=== PATIENT | male | born 2005 | race Caucasian/White ===

== ENCOUNTER 2024-12-11 19:54 | Observation (INO) ==
--- NOTE | 2024-12-11 20:24 | Emergency Department Note ---
ED Provider Note History of Present Illness Chief Complaint: Rib Injury/Pain Stated Complaint: PAIN UNDER RIBS THAT SHOOTS BACK INTO SHOULDER Time Seen by Provider: 12/11/24 20:10 19-year-old male who presents to the emergency department for evaluation of pain under his left lower rib region, radiating to his left shoulder. The patient reports that he has had discomfort in the shoulder for the past week. The patient reports that he has been losing weight and working out 6 days a week in the gym. He did notice some pain in the shoulder with moving it recently. The patient reports that he started to develop left lower rib pain on Wednesday that he thought was due to indigestion. He took a Dulcolax without improvement. The patient reports that at that time, he did notice some pain radiating to the right side of the abdomen, but that has since resolved. He denies any change in stool color, pattern or consistency. He also denies any urinary symptoms. The patient denies any personal or strong family history of heart or lung disease. The patient currently rates his discomfort a 3 out of 10. Home Medications Medication Instructions Recorded Confirmed Type No Known Home Medications 12/11/24 12/11/24 History Allergies Allergy/AdvReac Type Severity Reaction Status Date / Time amoxicillin [From Augmentin] AdvReac Nausea Verified 12/11/24 23:05 clavulanic acid AdvReac Nausea Verified 12/11/24 23:05 [From Augmentin] Past Med/Surg History Problem List (Updated 12/11/24 @ 23:17 by Tulio Mchugh) Acute pain of left shoulder (Acute) Pneumoperitoneum (Acute) Medical History No significant past medical history Surgical History No significant past surgical history Social History Smoking Status: Never smoker Preferred Language: Serbian current occupational status: student Feels Safe at Home: Yes Physical Exam Vital Signs Vital Signs - 24 hr 12/11/24 20:06 12/11/24 20:19 12/11/24 20:27 Temperature 36.6 C Temperature Source Temporal Artery Scan Pulse Rate 87 54 L Pulse Rhythm Regular Pulse Strength Normal Respiratory Rate 18 Respiratory Effort / Characteristics Non-Labored Spontaneous Respiratory Depth Normal Respiratory Pattern Regular Blood Pressure 130/85 Blood Pressure Mean 100 Blood Pressure Position Sitting Pulse Oximetry 100 100 Oxygen Delivery Method Room Air Room Air Sepsis Recent Fever Within 48 Hours No Sepsis New/Unexplained Change in Mental Status N/A Sepsis Action Taken by Nursing No Action Required 12/11/24 21:51 Temperature Temperature Source Pulse Rate 55 L Pulse Rhythm Pulse Strength Respiratory Rate 14 Respiratory Effort / Characteristics Respiratory Depth Respiratory Pattern Blood Pressure 91/67 L Blood Pressure Mean 75 Blood Pressure Position Pulse Oximetry 100 Oxygen Delivery Method Room Air Sepsis Recent Fever Within 48 Hours Sepsis New/Unexplained Change in Mental Status Sepsis Action Taken by Nursing CONSTITUTIONAL: Healthy and well nourished. Alert and oriented X 3. Patient does not appear in any acute distress. HEENT: No scleral icterus or conjunctival injection. Mucous membranes are moist. NECK: Full active range of motion without discomfort, or reproducible pain in the left shoulder region with cervical range of motion. RESPIRATORY: Clear to auscultation bilaterally with no wheezing, crackles, rhonchi or stridor. CARDIOVASCULAR: Regular rate and rhythm with no murmurs, rubs or gallops. GASTROINTESTINAL: Bowel sounds present in all quadrants. No abdominal tenderness to palpation. MUSCULOSKELETAL: Full range of motion of all joints without discomfort. INTEGUMENTARY: No rash or other significant dermatologic conditions noted. HEMATOLOGIC: No ecchymosis or petechiae. PSYCHIATRIC: Positive affect. NEUROLOGIC: No focal neurologic deficits noted. Course Course Patient history and physical exam were performed. Nursing notes were reviewed. Vital signs were reviewed and were normal. IV access was established, labs were ordered and drawn. An ECG was performed, showing a sinus bradycardic rhythm. The patient was placed on quality compliance manager while in the emergency department. Two-view chest x-ray did not show evidence for pneumonia, pneumothorax or cardiomegaly. A KUB x-ray shows significant air within the abdomen, as well as possibility of subdiaphragmatic air. Review of labs shows a mild leukopenia. Coag studies were normal, with an elevated D-dimer of 1310. CMP was otherwise unremarkable, as well as lipase and troponin. At this point, I did discuss the case further with Dr. Vredugo, ED attending physician, who recommended CT angiography of the chest, as well as CT imaging of the abdomen and pelvis. The studies were performed, showing intraperitoneal free air and small to moderate amount of ascites, concerning for viscus perforation. Fluid and gas-filled small bowel loops were also suggested to represent an enteritis or ileus in the appropriate clinical setting. Findings were discussed with the patient. The patient still had a benign abdomen on examination. At this point, the patient was administered IV Zosyn, and the case was further discussed with the [facility] hospitalist service. I also discussed the case further with Dr. Grijalva, general surgeon on-call. Based on surgical evaluation, he felt that the patient could be admitted with overnight observation. Please see hospitalist and general surgery dictations for further treatment and final disposition. Administered Medications Sodium Chloride (Nss) 1,000 mls @ 999 mls/hr IV .Q1H1M ONE Stop: 12/11/24 23:29 Last Admin: 12/11/24 22:47 Dose: 999 mls/hr Documented By: JOHN Discontinued Medications Piperacillin Sod/Tazobactam Sod (Zosyn) 4.5 gm in 100 mls @ 200 mls/hr IV NOW ONE; Protocol Stop: 12/11/24 22:39 Last Admin: 12/11/24 22:47 Dose: 200 mls/hr Documented By: JOHN Ioversol (Optiray 320 125ml) 115 ml IV ONCE ONE Stop: 12/11/24 21:44 Last Admin: 12/11/24 21:44 Dose: 115 ml Documented By: SHARAD Medical Decision Making Medical Records Attestation: I reviewed the patient's medical records. Home Medications was personally reviewed by me Laboratory Data Attestation: I reviewed the patient's lab results. 12/11/24 20:10 12/11/24 20:10 Lab Results 12/11/24 Range/Units 20:10 WBC 4.75 L (4.8-10.8) K/ul RBC 4.37 L (4.70-6.10) M/uL Hgb 13.5 L (14.0-18.0) g/dl Hct 39.8 L (42.0-52.0) % MCV 91.1 (80.0-100.0) fL MCH 30.9 (25.0-34.0) pg MCHC 33.9 (32.0-36.0) g/dL RDW Std Deviation 41.6 (36.4-46.3) fL RDW Coeff of Prashanth 12.5 (11.5-14.5) % Plt Count 221 (130-400) K/uL MPV 11.5 (9.4-12.4) fL Immature Gran % (Auto) 0.0 % Neut % (Auto) 53.5 % Lymph % (Auto) 36.6 % [place] % (Auto) 5.5 % Eos % (Auto) 3.8 % Baso % (Auto) 0.6 % Neut # (Auto) 2.54 (1.40-6.50) K/uL Lymph # (Auto) 1.74 (1.20-3.40) K/uL [place] # (Auto) 0.26 (0.11-0.59) K/uL Eos # (Auto) 0.18 (0.00-0.50) K/uL Baso # (Auto) 0.03 (0.00-0.20) K/uL Immature Gran # (Auto) 0.00 L (0.01-0.20) K/uL PT 11.9 (9.0-12.0) Seconds INR 1.1 (0.9-1.1) APTT 28 (21-31) Seconds PTT Ratio 1.0 D-Dimer 1310 H* (0-500) ug/L FEU Sodium 139 (136-145) mmol/L Potassium 3.8 (3.5-5.1) mmol/L Chloride 104 (98-107) mmol/L Carbon Dioxide 29 (21-32) mmol/L Anion Gap 6 (3-11) BUN 28 H (6-23) mg/dl Creatinine 1.17 (0.6-1.4) mg/dl Est Cr Clr Drug Dosing 99.9 ml/min eGFR 90.96 BUN/Creatinine Ratio 23.9 H (10-20) Glucose 90 (70-99(Fasting)) mg/dl Calcium 9.4 (8.6-10.3) mg/dl Total Bilirubin 0.7 (0.2-1.0) mg/dl AST 34 (13-39) U/L ALT 34 (7-52) U/L Alkaline Phosphatase 46 (34-104) U/L Troponin I High Sens < 2.3 (0-20) pg/ml Total Protein 7.4 (6.0-8.3) gm/dl Albumin 4.6 (3.4-5.0) gm/dl Globulin 2.8 (2.5-4.0) gm/dl Albumin/Globulin Ratio 1.6 (0.9-2) Lipase 45 (11-82) U/L Imaging Data Attestation: I personally reviewed and interpreted this imaging study as follows: My Impression: My interpretation of a two-view chest x-ray does not show evidence for pneumothorax, pneumonia or cardiomegaly. My interpretation of the KUB x-ray shows notable area with possibility of subdiaphragmatic air. My interpretation of CT angiography of the chest does not show evidence for any pulmonary emboli, pericarditis or pneumonia. My interpretation of CT with IV contrast of the abdomen and pelvis shows free air and fluid without any obvious bowel obstruction. Radiologist reports were also reviewed with concurrence. Radiologist's Impression: Chest X-Ray 12/11/24 20:19 Exam(s): XR CXR 2 VIEWS EXAM: XR Chest, 2 Views CLINICAL HISTORY: Reason for exam: L lower C/P, scapula pain. TECHNIQUE: Frontal and lateral views of the chest. COMPARISON: No relevant prior studies available. FINDINGS: Lungs: Unremarkable. No consolidation. Pleural space: Unremarkable. No pneumothorax. Heart: Unremarkable. No cardiomegaly. Mediastinum: Unremarkable. Normal mediastinal contour. Bones/joints: Unremarkable. No acute fracture. Upper abdomen: Right subdiaphragmatic lucency which could be due to free air. Moderate air distention of the colon seen. IMPRESSION: 1. No acute pulmonary process identified 2. Suspected free air in the upper abdomen. Decubitus film of the abdomen is suggested for further assessed on Electronically signed by: Austin Preciado MD 12/11/24 22:56 PM KUB X-Ray 12/11/24 20:19 Exam(s): XR KUB EXAM: XR Abdomen, 2 Views CLINICAL HISTORY: Reason for exam: L upper abd/chest pain. TECHNIQUE: Frontal view of the abdomen/pelvis with upright view of the abdomen. COMPARISON: No relevant prior studies available. FINDINGS: Intraperitoneal space: Suspected free air seen under the left dome of the diaphragm. Gastrointestinal tract: There is air distended loops of bowel loops in the abdomen. Bones/joints: Unremarkable. No acute fracture. IMPRESSION: 1. Suspected free air under the left dome of the diaphragm 2. Paralytic ileus Electronically signed by: Austin Preciado MD 12/11/24 22:58 PM Abdomen/Pelvis CT 12/11/24 21:29 CR Exam(s): CT ABDOMEN + PELVIS With Contrast IV Amt: 115 ml optiray 320 EXAM: CT Abdomen and Pelvis With Intravenous Contrast CLINICAL HISTORY: Reason for exam: RUQ abd pain. TECHNIQUE: Axial computed tomography images of the abdomen and pelvis with intravenous contrast. CTDI is 12.72 mGy and DLP is 1380.91 mGy-cm. Automated exposure control was utilized for the study. A dose lowering technique was utilized adhering to the principles of ALARA. CONTRAST: Patient received 115 ml optiray 320 of IV contrast COMPARISON: None FINDINGS: Lung bases: Unremarkable. No mass. No consolidation. ABDOMEN: Liver: Unremarkable. No mass. Gallbladder and bile ducts: Unremarkable. No calcified stones. No ductal dilation. Pancreas: Unremarkable. No mass. No ductal dilation. Spleen: Unremarkable. No splenomegaly. Adrenals: Unremarkable. No mass. Kidneys and ureters: Unremarkable. No hydronephrosis or obstructing ureteral stone. Stomach and bowel: Fluid and gas filled small bowel loops may represent enteritis or ileus in the appropriate clinical setting. No obstruction. PELVIS: Appendix: Normal appendix. Bladder: Unremarkable. No mass. Reproductive: Unremarkable as visualized. ABDOMEN and PELVIS: Intraperitoneal space: Intraperitoneal free air and [id number] amount of ascites , concerning for viscus perforation. Bones/joints: No acute fracture. No dislocation. Soft tissues: Unremarkable. Vasculature: Unremarkable. No abdominal aortic aneurysm. Lymph nodes: Unremarkable. No enlarged lymph nodes. IMPRESSION: 1. Intraperitoneal free air and okwsp-ny-najomsci amount of ascites , concerning for viscus perforation. 2. Fluid and gas filled small bowel loops may represent enteritis or ileus in the appropriate clinical setting. Communications: 12/11/24 22:03 Call Doctor Regarding Pneumoperitoneum, new or unexpected, called Dr. Mchugh on 12/11 22:03 (-04:00) Electronically signed by: Zen Hernandez M.D. 12/11/24 22:04 PM Chest CTA 12/11/24 21:29 Exam(s): CTA CHEST IV Amt: 115 ml optiray 320 EXAM: CT Angiography Chest With Intravenous Contrast CLINICAL HISTORY: Reason for exam: PE study. TECHNIQUE: Axial computed tomographic angiography images of the chest with intravenous contrast. CTDI is 12.72 mGy and DLP is 1380.91 mGy-cm. Automated exposure control was utilized for the study. A dose lowering technique was utilized adhering to the principles of ALARA. MIP reconstructed images were created and reviewed. COMPARISON: None FINDINGS: Pulmonary arteries: Unremarkable. No pulmonary embolus identified. Aorta: No acute findings. No aortic aneurysm or dissection. Lungs: Unremarkable. No mass. No consolidation. Pleural space: Unremarkable. No significant effusion. No pneumothorax. Heart: Unremarkable. No cardiomegaly. No significant pericardial effusion. No evidence of RV dysfunction. Bones/joints: No acute fracture. No dislocation. Soft tissues: Mild bilateral gynecomastia. Lymph nodes: Unremarkable. No enlarged lymph nodes. Other findings: Please see accompanying CT abdomen/pelvis for further details. IMPRESSION: 1. No pulmonary embolus identified. 2. No aortic aneurysm or dissection. Electronically signed by: Zen Hernandez M.D. 12/11/24 21:58 PM ECG Data Indication: + chest pain Comparison ECG Date: no prior available MDM Narrative Cardiac monitoring: An order was placed for continuous cardiac monitoring. The monitor shows a rate of 50 bpm with a sinus bradycardic rhythm. drug clerk history was reviewed throughout the evaluation, and no dysrhythmias were noted. See ED Course section for further details of today's visit with the patient presents with complaint of mild upper abdominal discomfort radiating to the left shoulder, with symptoms starting 3 days ago. On examination today, the patient does not have any abdominal tenderness to palpation. Laboratory studies were also nonconcerning. Imaging, including an initial KUB and chest x-ray, showed possible subdiaphragmatic free air, which prompted further CT angiography of the chest that did not show evidence for any pneumothorax, pneumonia, pericarditis or other acute intrathoracic findings. CT of the abdomen and pelvis, however, was concerning for pneumoperitoneum and mild ascites. Radiologist was concerned for possible viscus perforation. Patient was administered IV Zosyn antibiotics. The case was discussed with the patient, [facility] attending physician[facility] who recommended admission for further observation overnight. It is noted that the patient does not have any concerning clinical exam findings. Impression Pneumoperitoneum, Acute pain of left shoulder Discharge Plan Visit Data Chief Complaint: Rib Injury/Pain Stated Complaint: PAIN UNDER RIBS THAT SHOOTS BACK INTO SHOULDER ED Provider: Ashok Verdugo ED Midlevel Provider: Tulio Mchugh Discharge Problem: Pneumoperitoneum, Acute pain of left shoulder Patient Disposition: Admitted As Inpatient Condition: Good Forms Stand Alone Forms: [employer] Prescriptions Prescriptions: No Action No Known Home Medications Referrals Referrals: PCP,NO [Primary Care Provider] - ED DC CONDITION Conditon at Discharge Condition at Discharge: Fair
[2024-12-11 20:31] LABS: Hematocrit (blood only) 39.8 % (42.0-52.0); Hemoglobin 13.5 g/dl (14.0-18.0); Immature Granulocytes # (auto) 0.00 K/uL (0.01-0.20); Immature Granulocytes % (auto) 0.0 %; Mean Corpuscular Hemoglobin 30.9 pg (25.0-34.0); Mean Corpuscular Volume 91.1 fL (80.0-100.0); Platelet Count 221 K/uL (130-400); RDW Standard Deviation 41.6 fL (36.4-46.3); Red Blood Count 4.37 M/uL (4.70-6.10); White Blood Count 4.75 K/ul (4.8-10.8)
[2024-12-11 20:48] LABS: Alanine Aminotransferase 34 U/L (7-52); Albumin Globulin Ratio 1.6 (0.9-2); Alkaline Phosphatase 46 U/L (34-104); Anion Gap 6 (3-11); Bilirubin,Total 0.7 mg/dl (0.2-1.0); Blood Urea Nitrogen 28 mg/dl (6-23); Calcium 9.4 mg/dl (8.6-10.3); Carbon Dioxide 29 mmol/L (21-32); Chloride 104 mmol/L (98-107); Creatinine Clr Calc Pharmacy 99.9 ml/min; Globulin 2.8 gm/dl (2.5-4.0); Glucose 90 mg/dl (70-99(Fasting)); Lipase 45 U/L (11-82); Potassium 3.8 mmol/L (3.5-5.1); Sodium 139 mmol/L (136-145); Total Protein 7.4 gm/dl (6.0-8.3)
[2024-12-11 21:07] LABS: INR 1.1 (0.9-1.1); Partial Thromboplastin Time 28 Seconds (21-31); Prothrombin Time 11.9 Seconds (9.0-12.0)
[2024-12-11] MEDS: OPTIRAY 320 125ml IV ONE (21:44)
--- NOTE | 2024-12-11 21:59 | CT Scan Report ---
Exam(s): CTA CHEST IV Amt: 115 ml optiray 320 EXAM: CT Angiography Chest With Intravenous Contrast CLINICAL HISTORY: Reason for exam: PE study. TECHNIQUE: Axial computed tomographic angiography images of the chest with intravenous contrast. CTDI is 12.72 mGy and DLP is 1380.91 mGy-cm. Automated exposure control was utilized for the study. A dose lowering technique was utilized adhering to the principles of ALARA. MIP reconstructed images were created and reviewed. COMPARISON: None FINDINGS: Pulmonary arteries: Unremarkable. No pulmonary embolus identified. Aorta: No acute findings. No aortic aneurysm or dissection. Lungs: Unremarkable. No mass. No consolidation. Pleural space: Unremarkable. No significant effusion. No pneumothorax. Heart: Unremarkable. No cardiomegaly. No significant pericardial effusion. No evidence of RV dysfunction. Bones/joints: No acute fracture. No dislocation. Soft tissues: Mild bilateral gynecomastia. Lymph nodes: Unremarkable. No enlarged lymph nodes. Other findings: Please see accompanying CT abdomen/pelvis for further details. IMPRESSION: 1. No pulmonary embolus identified. 2. No aortic aneurysm or dissection. Electronically signed by: Zen Hernandez M.D. 12/11/24 21:58 PM
--- NOTE | 2024-12-11 22:05 | CT Scan Report ---
Exam(s): CT ABDOMEN + PELVIS With Contrast IV Amt: 115 ml optiray 320 EXAM: CT Abdomen and Pelvis With Intravenous Contrast CLINICAL HISTORY: Reason for exam: RUQ abd pain. TECHNIQUE: Axial computed tomography images of the abdomen and pelvis with intravenous contrast. CTDI is 12.72 mGy and DLP is 1380.91 mGy-cm. Automated exposure control was utilized for the study. A dose lowering technique was utilized adhering to the principles of ALARA. CONTRAST: Patient received 115 ml optiray 320 of IV contrast COMPARISON: None FINDINGS: Lung bases: Unremarkable. No mass. No consolidation. ABDOMEN: Liver: Unremarkable. No mass. Gallbladder and bile ducts: Unremarkable. No calcified stones. No ductal dilation. Pancreas: Unremarkable. No mass. No ductal dilation. Spleen: Unremarkable. No splenomegaly. Adrenals: Unremarkable. No mass. Kidneys and ureters: Unremarkable. No hydronephrosis or obstructing ureteral stone. Stomach and bowel: Fluid and gas filled small bowel loops may represent enteritis or ileus in the appropriate clinical setting. No obstruction. PELVIS: Appendix: Normal appendix. Bladder: Unremarkable. No mass. Reproductive: Unremarkable as visualized. ABDOMEN and PELVIS: Intraperitoneal space: Intraperitoneal free air and [id number]-[id number] amount of ascites , concerning for viscus perforation. Bones/joints: No acute fracture. No dislocation. Soft tissues: Unremarkable. Vasculature: Unremarkable. No abdominal aortic aneurysm. Lymph nodes: Unremarkable. No enlarged lymph nodes. IMPRESSION: 1. Intraperitoneal free air and [id number]-lkyhkmjn amount of ascites , concerning for viscus perforation. 2. Fluid and gas filled small bowel loops may represent enteritis or ileus in the appropriate clinical setting. Communications: 12/11/24 22:03 Call Doctor Regarding Pneumoperitoneum, new or unexpected, called Dr. Mchugh on 12/11 22:03 (-04:00) Electronically signed by: Zen Hernandez M.D. 12/11/24 22:04 PM
[2024-12-11] MEDS: PIPERACILLIN/TAZOBACTAM 4.5 GM/100 ML BAG IV ONE (22:47)
[2024-12-11] MEDS: SODIUM CHLORIDE 0.9% 1,000 ML IV ONE (22:47)
--- NOTE | 2024-12-11 22:54 | History & Physical Report ---
Date of Service December 11, 2024 Assessment & Plan (1) Pneumoperitoneum: (2) Perforated viscus: (3) Ascites: (4) Acute pain of left shoulder: Plan The patient is a 19-year-old male with no significant past medical history, who presents to the emergency department for evaluation of left shoulder pain. He initially noted the discomfort a few weeks ago, had in the interim developed some left-sided abdominal pain, which has since improved, due to the persistence of the shoulder pain he presents to the ED for assessment. He denies any history of trauma. He notes a 25 pound weight loss over the past few months that he attributes to decreasing calorie intake to 1500 loli a day, and increasing calorie burn off to exercising 6 times per week. He reports over the past week he did increase his calorie intake back to 2000 loli a day. Workup in the emergency department included a normal CBC with differential and chemistry profile. KUB x-ray, and CT scan of the abdomen and pelvis, and CTA chest were significant for no PE, aortic aneurysm or dissection. CT abdomen and pelvis did note intraperitoneal free air and small to moderate amount of ascites concerning for viscus perforation. Fluid and gas-filled small bowel loops may represent enteritis or ileus in the appropriate clinical setting. Due to these abnormal findings, patient was referred to the [facility] Hospitalist service for evaluation and treatment, and general surgery was consulted and saw the patient while in the ED as well. Pneumoperitoneum/perforated viscus/acute left shoulder pain- Patient's principal symptom was that of left shoulder pain. He had had some left-sided abdominal pain which came and went. His examination is relatively benign, although imaging looks very significant. Admit to medical surgical NPO LR at 125 mL/h Pantoprazole 40 mg IV now and every morning Zofran 4 mg IV every 6 hours as needed Zosyn 4.5 g IV every 8 hours Acetaminophen 1 g IV every 8 hours as needed for mild pain or fever Serial laboratories in the a.m. General Surgery consulted and saw the patient in the emergency department Ascites- Noted a small to moderate on CT scan Likely secondary to perforated viscus History of Present Illness Chief Complaint: The patient presents to the emergency department for assessment of pain that began under his left lower rib area, and radiating to his left shoulder over the past week. He reports a 25 pound weight loss over the past few months, that he attributes to decreasing his caloric intake and increasing calorie burn off by exercising 6 days/week. He denies any trauma. He noted the worsening left lower rib pain 3 days ago, but did improve. He denies any significant NSAID use. Due to persistence of symptoms, he presents to the emergency department for assessment of primarily left shoulder pain. Primary Care Provider: NO PCP The patient is a 19-year-old male with no significant past medical history, who presents to the emergency department for evaluation of left shoulder pain. He initially noted the discomfort a few weeks ago, had in the interim developed some left-sided abdominal pain, which has since improved, due to the persistence of the shoulder pain he presents to the ED for assessment. He denies any history of trauma. He notes a 25 pound weight loss over the past few months that he attributes to decreasing calorie intake to 1500 loli a day, and increasing calorie burn off to exercising 6 times per week. He reports over the past week he did increase his calorie intake back to 2000 loli a day. Workup in the emergency department included a normal CBC with differential and chemistry profile. KUB x-ray, and CT scan of the abdomen and pelvis, and CTA chest were significant for no PE, aortic aneurysm or dissection. CT abdomen and pelvis did note intraperitoneal free air and small to moderate amount of ascites concerning for viscus perforation. Fluid and gas-filled small bowel loops may represent enteritis or ileus in the appropriate clinical setting. Allergies Allergy/AdvReac Type Severity Reaction Status Date / Time amoxicillin [From Augmentin] AdvReac Nausea Verified 12/11/24 23:05 clavulanic acid AdvReac Nausea Verified 12/11/24 23:05 [From Augmentin] Home Medications Medication Instructions Recorded Confirmed Type No Known Home Medications 12/11/24 12/11/24 History Past Med/Surg History Problem List (Updated 12/12/24 @ 00:49 by Simone Bowling MD) Perforated viscus Ascites Acute pain of left shoulder (Acute) Pneumoperitoneum (Acute) Medical History No significant past medical history Surgical History No significant past surgical history Social History Smoking Status: Never smoker Tobacco Type: Declines Second Hand Exposure: No; Do You Dip or Chew Tobacco: No; Hx Alcohol Use: Yes Alcohol type: beer Hx Substance Use: No Preferred Language: French Communication Ability: Effective Paper Products Printer Required: No Beliefs That Will Affect Care: None Current Living Situation: Family and Other Current Living Situation Comment: Patient lives with 1 person during school, family when out of school current occupational status: student Feels Safe at Home: Yes Assistive Devices: None Review of Systems Review of Systems: The patient denies chest pain, palpitations, shortness of breath, dyspnea on exertion, cough, lower extremity swelling, sore throat, fevers, chills, sweats, fatigue, nausea, vomiting, diarrhea , constipation, abdominal pain, pelvic pain, blood in urine or stool, dysuria, urinary frequency or urgency, lightheadedness, dizziness, headache, memory loss, loss of consciousness, rash, abnormal bruising or bleeding, imbalance, focal or generalized weakness, numbness or tingling in legs, generalized arthralgias or myalgias, neck pain, or night sweats. The review of systems is otherwise negative other than for that already noted above, and at least 10 systems have been reviewed. Physical Exam Physical Exam: The patient is awake, alert and oriented 3, well developed and well nourished, normocephalic and atraumatic, lying in bed and in no acute distress. HEENT--PERRL, EOMI, mucous membranes and oropharynx dry. Neck--supple. No JVD. No bruits. Thyroid normal, trachea midline, no adenopathy. Heart--normal S1 and S2. No murmurs, rubs or gallops. Lungs--clear bilaterally, no respiratory distress, no accessory muscle use. Abdomen--decreased bowel sounds, soft, nontender and nondistended. Extremities--no cyanosis or clubbing. No edema. There are good distal pulses b/l. Dermatologic--normal skin turgor, normal color, no abnormal lymph nodes, no rash. Neurologic--cranial nerves II through XII grossly intact. Rheumatologic--normal range of motion. Psychiatric--normal affect. Results & Data Results & Data Vital Signs (Past 12 Hours) Vital Signs Temp Pulse Resp BP Pulse Ox O2 Del Method 12/11/24 21:51 55 L 14 91/67 L 100 Room Air 12/11/24 20:27 100 Room Air 12/11/24 20:19 54 L 12/11/24 20:06 36.6 C 87 18 130/85 100 Room Air Laboratory Results Laboratory Results WBC 4.75 K/ul (4.8-10.8) L 12/11/24 20:10 RBC 4.37 M/uL (4.70-6.10) L 12/11/24 20:10 Hgb 13.5 g/dl (14.0-18.0) L 12/11/24 20:10 Hct 39.8 % (42.0-52.0) L 12/11/24 20:10 MCV 91.1 fL (80.0-100.0) 12/11/24 20:10 MCH 30.9 pg (25.0-34.0) 12/11/24 20:10 MCHC 33.9 g/dL (32.0-36.0) 12/11/24 20:10 RDW Std Deviation 41.6 fL (36.4-46.3) 12/11/24 20:10 RDW Coeff of Prashanth 12.5 % (11.5-14.5) 12/11/24 20:10 Plt Count 221 K/uL (130-400) 12/11/24 20:10 MPV 11.5 fL (9.4-12.4) 12/11/24 20:10 Immature Gran % (Auto) 0.0 % 12/11/24 20:10 Neut % (Auto) 53.5 % 12/11/24 20:10 Lymph % (Auto) 36.6 % 12/11/24 20:10 [place] % (Auto) 5.5 % 12/11/24 20:10 Eos % (Auto) 3.8 % 12/11/24 20:10 Baso % (Auto) 0.6 % 12/11/24 20:10 Neut # (Auto) 2.54 K/uL (1.40-6.50) 12/11/24 20:10 Lymph # (Auto) 1.74 K/uL (1.20-3.40) 12/11/24 20:10 [place]illion # (Auto) 0.26 K/uL (0.11-0.59) 12/11/24 20:10 Eos # (Auto) 0.18 K/uL (0.00-0.50) 12/11/24 20:10 Baso # (Auto) 0.03 K/uL (0.00-0.20) 12/11/24 20:10 Immature Gran # (Auto) 0.00 K/uL (0.01-0.20) L 12/11/24 20:10 PT 11.9 Seconds (9.0-12.0) 12/11/24 20:10 INR 1.1 (0.9-1.1) 12/11/24 20:10 APTT 28 Seconds (21-31) 12/11/24 20:10 PTT Ratio 1.0 12/11/24 20:10 D-Dimer 1310 ug/L FEU (0-500) H* 12/11/24 20:10 Sodium 139 mmol/L (136-145) 12/11/24 20:10 Potassium 3.8 mmol/L (3.5-5.1) 12/11/24 20:10 Chloride 104 mmol/L (98-107) 12/11/24 20:10 Carbon Dioxide 29 mmol/L (21-32) 12/11/24 20:10 Anion Gap 6 (3-11) 12/11/24 20:10 BUN 28 mg/dl (6-23) H 12/11/24 20:10 Creatinine 1.17 mg/dl (0.6-1.4) 12/11/24 20:10 Est Cr Clr Drug Dosing 99.9 ml/min 12/11/24 20:10 eGFR 90.96 12/11/24 20:10 BUN/Creatinine Ratio 23.9 (10-20) H 12/11/24 20:10 Glucose 90 mg/dl (70-99(Fasting)) 12/11/24 20:10 Calcium 9.4 mg/dl (8.6-10.3) 12/11/24 20:10 Magnesium 2.0 mg/dl (1.7-2.4) 12/11/24 20:10 Total Bilirubin 0.7 mg/dl (0.2-1.0) 12/11/24 20:10 AST 34 U/L (13-39) 12/11/24 20:10 ALT 34 U/L (7-52) 12/11/24 20:10 Alkaline Phosphatase 46 U/L (34-104) 12/11/24 20:10 Troponin I High Sens < 2.3 pg/ml (0-20) 12/11/24 20:10 Total Protein 7.4 gm/dl (6.0-8.3) 12/11/24 20:10 Albumin 4.6 gm/dl (3.4-5.0) 12/11/24 20:10 Globulin 2.8 gm/dl (2.5-4.0) 12/11/24 20:10 Albumin/Globulin Ratio 1.6 (0.9-2) 12/11/24 20:10 Lipase 45 U/L (11-82) 12/11/24 20:10 Impressions Chest X-Ray 12/11/24 20:19 Exam(s): XR CXR 2 VIEWS EXAM: XR Chest, 2 Views CLINICAL HISTORY: Reason for exam: L lower C/P, scapula pain. TECHNIQUE: Frontal and lateral views of the chest. COMPARISON: No relevant prior studies available. FINDINGS: Lungs: Unremarkable. No consolidation. Pleural space: Unremarkable. No pneumothorax. Heart: Unremarkable. No cardiomegaly. Mediastinum: Unremarkable. Normal mediastinal contour. Bones/joints: Unremarkable. No acute fracture. Upper abdomen: Right subdiaphragmatic lucency which could be due to free air. Moderate air distention of the colon seen. IMPRESSION: 1. No acute pulmonary process identified 2. Suspected free air in the upper abdomen. Decubitus film of the abdomen is suggested for further assessed on Electronically signed by: Austin Preciado MD 12/11/24 22:56 PM KUB X-Ray 12/11/24 20:19 Exam(s): XR KUB EXAM: XR Abdomen, 2 Views CLINICAL HISTORY: Reason for exam: L upper abd/chest pain. TECHNIQUE: Frontal view of the abdomen/pelvis with upright view of the abdomen. COMPARISON: No relevant prior studies available. FINDINGS: Intraperitoneal space: Suspected free air seen under the left dome of the diaphragm. Gastrointestinal tract: There is air distended loops of bowel loops in the abdomen. Bones/joints: Unremarkable. No acute fracture. IMPRESSION: 1. Suspected free air under the left dome of the diaphragm 2. Paralytic ileus Electronically signed by: Austin Preciado MD 12/11/24 22:58 PM Abdomen/Pelvis CT 12/11/24 21:29 CR Exam(s): CT ABDOMEN + PELVIS With Contrast IV Amt: 115 ml optiray 320 EXAM: CT Abdomen and Pelvis With Intravenous Contrast CLINICAL HISTORY: Reason for exam: RUQ abd pain. TECHNIQUE: Axial computed tomography images of the abdomen and pelvis with intravenous contrast. CTDI is 12.72 mGy and DLP is 1380.91 mGy-cm. Automated exposure control was utilized for the study. A dose lowering technique was utilized adhering to the principles of ALARA. CONTRAST: Patient received 115 ml optiray 320 of IV contrast COMPARISON: None FINDINGS: Lung bases: Unremarkable. No mass. No consolidation. ABDOMEN: Liver: Unremarkable. No mass. Gallbladder and bile ducts: Unremarkable. No calcified stones. No ductal dilation. Pancreas: Unremarkable. No mass. No ductal dilation. Spleen: Unremarkable. No splenomegaly. Adrenals: Unremarkable. No mass. Kidneys and ureters: Unremarkable. No hydronephrosis or obstructing ureteral stone. Stomach and bowel: Fluid and gas filled small bowel loops may represent enteritis or ileus in the appropriate clinical setting. No obstruction. PELVIS: Appendix: Normal appendix. Bladder: Unremarkable. No mass. Reproductive: Unremarkable as visualized. ABDOMEN and PELVIS: Intraperitoneal space: Intraperitoneal free air and [id number] amount of ascites , concerning for viscus perforation. Bones/joints: No acute fracture. No dislocation. Soft tissues: Unremarkable. Vasculature: Unremarkable. No abdominal aortic aneurysm. Lymph nodes: Unremarkable. No enlarged lymph nodes. IMPRESSION: 1. Intraperitoneal free air and [id number] amount of ascites , concerning for viscus perforation. 2. Fluid and gas filled small bowel loops may represent enteritis or ileus in the appropriate clinical setting. Communications: 12/11/24 22:03 Call Doctor Regarding Pneumoperitoneum, new or unexpected, called Dr. Mchugh on 12/11 22:03 (-04:00) Electronically signed by: Zen Hernandez M.D. 12/11/24 22:04 PM Chest CTA 12/11/24 21:29 Exam(s): CTA CHEST IV Amt: 115 ml optiray 320 EXAM: CT Angiography Chest With Intravenous Contrast CLINICAL HISTORY: Reason for exam: PE study. TECHNIQUE: Axial computed tomographic angiography images of the chest with intravenous contrast. CTDI is 12.72 mGy and DLP is 1380.91 mGy-cm. Automated exposure control was utilized for the study. A dose lowering technique was utilized adhering to the principles of ALARA. MIP reconstructed images were created and reviewed. COMPARISON: None FINDINGS: Pulmonary arteries: Unremarkable. No pulmonary embolus identified. Aorta: No acute findings. No aortic aneurysm or dissection. Lungs: Unremarkable. No mass. No consolidation. Pleural space: Unremarkable. No significant effusion. No pneumothorax. Heart: Unremarkable. No cardiomegaly. No significant pericardial effusion. No evidence of RV dysfunction. Bones/joints: No acute fracture. No dislocation. Soft tissues: Mild bilateral gynecomastia. Lymph nodes: Unremarkable. No enlarged lymph nodes. Other findings: Please see accompanying CT abdomen/pelvis for further details. IMPRESSION: 1. No pulmonary embolus identified. 2. No aortic aneurysm or dissection. Electronically signed by: Zen Hernandez M.D. 12/11/24 21:58 PM Code Status & VTE Plan Code Status Full code VTE Prophylaxis Plan VTE Prophylaxis will be ordered: Yes PG Care Time/CCT Total # of Minutes Spent Total Time Spent with Patient: Total time spent is greater than 50% in coordination of care (as documented) at patient's floor/unit and/or counseling patient: Coding Level of Care Code 18936 INT INP/OBS CARE 3/75MIN Diagnoses Pneumoperitoneum K66.8 Perforated viscus R19.8 Ascites R18.8 Acute pain of left shoulder M25.512
--- NOTE | 2024-12-11 22:57 | XRay Report ---
Exam(s): XR CXR 2 VIEWS EXAM: XR Chest, 2 Views CLINICAL HISTORY: Reason for exam: L lower C/P, scapula pain. TECHNIQUE: Frontal and lateral views of the chest. COMPARISON: No relevant prior studies available. FINDINGS: Lungs: Unremarkable. No consolidation. Pleural space: Unremarkable. No pneumothorax. Heart: Unremarkable. No cardiomegaly. Mediastinum: Unremarkable. Normal mediastinal contour. Bones/joints: Unremarkable. No acute fracture. Upper abdomen: Right subdiaphragmatic lucency which could be due to free air. Moderate air distention of the colon seen. IMPRESSION: 1. No acute pulmonary process identified 2. Suspected free air in the upper abdomen. Decubitus film of the abdomen is suggested for further assessed on Electronically signed by: Austin Preciado MD 12/11/24 22:56 PM
--- NOTE | 2024-12-11 22:58 | XRay Report ---
Exam(s): XR KUB EXAM: XR Abdomen, 2 Views CLINICAL HISTORY: Reason for exam: L upper abd/chest pain. TECHNIQUE: Frontal view of the abdomen/pelvis with upright view of the abdomen. COMPARISON: No relevant prior studies available. FINDINGS: Intraperitoneal space: Suspected free air seen under the left dome of the diaphragm. Gastrointestinal tract: There is air distended loops of bowel loops in the abdomen. Bones/joints: Unremarkable. No acute fracture. IMPRESSION: 1. Suspected free air under the left dome of the diaphragm 2. Paralytic ileus Electronically signed by: Austin Preciado MD 12/11/24 22:58 PM
--- NOTE | 2024-12-11 23:02 | Surgery Consultation ---
Date of Consultation December 11, 2024 Assessment & Plan (1) Pneumoperitoneum: I evaluated the patient in the emergency department at the request of the hospitalist service. The hospitalist admitting the patient to the hospital. Surgical recommendations are as follows: The findings of pneumoperitoneum on patient's abdominal imaging are concerning for viscus perforation, however the patient has an entirely benign abdominal exam I discussed the case with my attending physician, Dr. Gomez Grijalva and given the patient's unremarkable laboratory exam, and benign abdominal exam he feels the best course of action is observation for the present time The patient should be kept n.p.o. Intravenous fluids should be continued Antibiotics in form of Zosyn should continue Analgesics to be used sparingly as we do not want mask any underlying condition with pain medications A proton pump inhibitor will be initiated I had a lengthy discussion with the patient noting that his imaging findings are concerning however given the benign nature of his exam we feel observation with the above-noted plan will be the first course of action. I did discuss with the patient that if there is any clinical deterioration he may require an emergent or semiemergent operation and he expresses understanding Would recommend utilizing only SCDs for DVT prevention, no chemical needs until his ascertain whether or not the patient will require any surgical intervention Addendum (4:45 AM) Patient revisited at bedside. He continues to note he has no abdominal pain. On physical exam his abdominal exam remains entirely benign. He remains afebrile and hemodynamically stable. Will continue with plan as outlined above History of Present Illness Reason for Consultation: Pneumoperitoneum History of Present Illness This is a 19-year-old male who presented to the emergency department secondary to left upper quadrant abdominal pain as well as left-sided rib pain. The patient notes that he was having the symptoms and on and off pattern and no predictable fashion for approximately 3 to 4 days. The patient does note that he had some left-sided shoulder pain previously approximately 2 days prior to that. He does admit to only slight abdominal discomfort. He has not had any fevers, shakes, or chills. The patient notes that he felt that initially his symptoms were due to constipation so he took a Dulcolax. He notes that he has had a loose bowel movement earlier today and denies any melena or bright red blood per rectum. Patient notes that he also took 1 Motrin pill 2 days ago to help alleviate his symptoms. He notes that he does not regularly take this medication. Patient says that he does not smoke, vape, or use illicit drugs. He says that he does drink alcoholic beverages usually on the weekends when over 3-day. He may consume approximately 10 drinks. With his current presentation he denies any falls, injuries, or trauma that may have precipitated the sympt oms. In addition, he reports that his appetite is normal and his last oral intake was at approximately 7:00 PM today when he had steak and eggs for dinner. Since arrival to the hospital he has had labs and imaging which I independent reviewed. A chest x-ray and KUB showed concern for free intraperitoneal air under the diaphragm. This was followed up with a CT scan of the chest that showed no evidence of pulmonary emboli. There is no evidence of pneumothorax. A CT scan of the abdomen pelvis was performed with patient was noted to have intraperitoneal free air and a small to moderate amount of ascitesinterpreting radiologist was raising the concern of a viscus perforation. The patient was noted to have fluid and gas-filled small bowel loops felt to represent either enteritis or an ileus. Labs included CBC were white blood cell count was elevated 4.7. Hemoglobin and hematocrit were 13.5 and 39.8. Platelet count is normal. Coagulation studies showed his INR and PTT were normal. Chemistry profile showed sodium, potassium, and creatinine were all normal. There is a slight elevation of his BUN at 28. There is no elevation of patient's LFTs or lipase. Since arrival to the emergency department the patient has received some intravenous fluids (1 L of normal saline solution). He has not received or required any pain medications and antibiotics in form of Zosyn have been initiated. At the time of my interview with the patient he was resting comfortably in bed and did not have any abdominal pain and was in no distress. Allergies Allergy/AdvReac Type Severity Reaction Status Date / Time amoxicillin [From Augmentin] AdvReac Nausea Verified 12/11/24 23:05 clavulanic acid AdvReac Nausea Verified 12/11/24 23:05 [From Augmentin] Home Medications Medication Instructions Recorded Confirmed Type No Known Home Medications 12/11/24 12/11/24 History Patient History Medical History No significant past medical history Surgical History No significant past surgical history Social History Smoking Status: Never smoker Tobacco Type: Declines Second Hand Exposure: No; Do You Dip or Chew Tobacco: No; Tobacco Cessation Education Requested by Patient: No Hx Alcohol Use: Yes Alcohol type: beer Hx Substance Use: No Preferred Language: Indonesian Communication Ability: Effective Crown Attacher Required: No Beliefs That Will Affect Care: None Current Living Situation: Family and Other Current Living Situation Comment: Patient lives with 1 person during school, family when out of school current occupational status: student Feels Safe at Home: Yes Safety Concerns: Feels Safe At This Time Assistive Devices: None Review of Systems Review of Systems: All systems reviewed & are unremarkable except as noted in HPI & below Physical Exam Constitutional: WD/WN, vitals as above Eyes: no conjunctival abnormality ENMT: Ears: no hearing impairment and no external ear abnormality Mouth: no oropharynx abnormality Neck: trachea midline Respiratory: normal respiratory effort; no respiratory distress and no labored breathing Cardiovascular: Rate/Rhythm: regular rate and regular rhythm Vessels: dorsalis pedis pulses present and radial pulses present Gastrointestinal (Abdomen): At the time of my exam the patient was noted to have an entirely benign abdominal examthere is no rebound tenderness, guarding, or rigidity. No other signs of peritonitis were noted. I was able to easily palpate the patient's abdomen with both soft and deep palpation which did not elicit any pain. I do not appreciate any hernias. There is no bruising or ecchymosis on the patient's abdominal wall. Musculoskeletal: No calf tenderness Skin: no rashes Neurologic: moves all extremities Psychiatric: A+Ox3, euthymic affect Results & Data Vital Signs (Past 12 Hours) Vital Signs Temp Pulse Resp BP Pulse Ox O2 Del Method 12/11/24 21:51 55 L 14 91/67 L 100 Room Air 12/11/24 20:27 100 Room Air 12/11/24 20:19 54 L 12/11/24 20:06 36.6 C 87 18 130/85 100 Room Air PG Care Time/CCT Total # of Minutes Spent Total Time Spent with Patient: Total time spent is greater than 50% in coordination of care (as documented) at patient's floor/unit and/or counseling patient: Coding Level of Care Code 02641 OFFICE CONSULT LVL Diagnoses Pneumoperitoneum K66.8
[2024-12-11 23:11] LABS: Magnesium 2.0 mg/dl (1.7-2.4)
[2024-12-11] MEDS: PANTOprazole 40 MG/10 ML SYR IV ONE (23:40)
[2024-12-11] MEDS ORDERED: ACETAMINOPHEN 1000 MG/100 ML IV IV PRN (23:55)
[2024-12-11] MEDS ORDERED: ONDANSETRON INJ 2 MG/ML 2 ML VIAL IV PRN (23:55)
[2024-12-12] MEDS: LACTATED RINGER'S 1,000 ML IV SCH (00:03)
[2024-12-12] MEDS: PIPERACILLIN/TAZOBACTAM 4.5 GM/100 ML BAG IV SCH (05:34)
[2024-12-12 08:10] LABS: Hematocrit (blood only) 33.8 % (42.0-52.0); Hemoglobin 11.8 g/dl (14.0-18.0); Mean Corpuscular Hemoglobin 31.9 pg (25.0-34.0); Mean Corpuscular Volume 91.4 fL (80.0-100.0); Platelet Count 157 K/uL (130-400); RDW Standard Deviation 42.0 fL (36.4-46.3); Red Blood Count 3.70 M/uL (4.70-6.10); White Blood Count 2.76 K/ul (4.8-10.8)
[2024-12-12 08:37] LABS: Alanine Aminotransferase 24.0 U/L (7-52); Albumin Globulin Ratio 1.8 (0.9-2); Alkaline Phosphatase 31.0 U/L (34-104); Anion Gap 4.0 (3-11); Bilirubin,Total 0.9 mg/dl (0.2-1.0); Blood Urea Nitrogen 21.0 mg/dl (6-23); Calcium 8.9 mg/dl (8.6-10.3); Carbon Dioxide 27.0 mmol/L (21-32); Chloride 107.0 mmol/L (98-107); Creatinine Clr Calc Pharmacy 103.4 ml/min; Globulin 2.1 gm/dl (2.5-4.0); Glucose 81.0 mg/dl (70-99(Fasting)); Magnesium 1.9 mg/dl (1.7-2.4); Potassium 4.1 mmol/L (3.5-5.1); Sodium 138.0 mmol/L (136-145); Total Protein 5.8 gm/dl (6.0-8.3)
[2024-12-12 09:00] LABS: Immature Granulocytes # (auto) 0.00 K/uL (0.01-0.20); Immature Granulocytes % (auto) 0.0 %
--- NOTE | 2024-12-12 09:25 | Surgery Progress Note ---
Date of Service December 12, 2024 Assessment & Plan (1) Pneumoperitoneum: Plan: His CT images and results were personally viewed and interpreted by myself He does have what appears to be some pneumoperitoneum and fluid in his pelvis His abdominal exam is completely benign as well as his labs and he is hemodynamically stable Will trial some clear liquids today and see how he does, but will observe him for another 24 hours on liquids If you develop severe abdominal pain or hemodynamic instability, would proceed with exploration Surgery will follow Admission and Anticipated Discharge Date Admission Date: December 11, 2024 Subjective Patient seen and examined. Denies any abdominal pain. Denies any nausea or vomiting. Afebrile. Hemodynamically stable. Review of Systems Constitutional: no fever and no chills Eyes: no blind spots and no corrective lenses Respiratory: no cough and no dyspnea Cardiovascular: no chest pain and no dyspnea on exertion Gastrointestinal: no abdominal pain, no nausea and no vomiting Musculoskeletal: no back pain and no neck pain Integumentary: no acne, no lesions and no changing lesions Neurologic: no gait abnormality and no loss of sensation Psychiatric: no behavioral changes and no depression Physical Exam Constitutional: WD/WN, vitals as above Eyes: PERRL, conjunctivae normal, anicteric sclerae Respiratory: normal respiratory effort, lungs clear to auscultation Cardiovascular: RRR, no murmur, no edema Gastrointestinal (Abdomen): normal bowel sounds, soft, nontender, no hepatosplenomegaly Skin: no rashes, warm and dry Psychiatric: A+Ox3, euthymic affect Results & Data Vital Signs (Past 12 Hours) Vital Signs Temp Pulse Pulse Resp BP BP Pulse Ox 12/12/24 08:18 46 L 12/12/24 06:57 36.5 C 41 L 14 111/66 100 12/11/24 23:41 36.6 C 18 105/66 98 12/11/24 23:33 46 L 18 112/68 99 12/11/24 23:00 36.6 C 65 18 105/66 98 12/11/24 21:51 55 L 14 91/67 L 100 O2 Del Method 12/12/24 08:18 12/12/24 06:57 Room Air 12/11/24 23:41 Room Air 12/11/24 23:33 Room Air 12/11/24 23:00 Room Air 12/11/24 21:51 Room Air PG Care Time/CCT Total # of Minutes Spent Total Time Spent with Patient: Total time spent is greater than 50% in coordination of care (as documented) at patient's floor/unit and/or counseling patient: Coding Level of Care Code 72581 SUB INP/OBS CARE 05/13MIN Diagnoses Pneumoperitoneum K66.8
--- NOTE | 2024-12-12 10:14 | Hospitalist Progress Note ---
Date of Service December 12, 2024 Assessment & Plan (1) Pneumoperitoneum: (2) Perforated viscus: (3) Ascites: (4) Acute pain of left shoulder: Plan The patient is a 19-year-old male with no significant past medical history, who presents to the emergency department for evaluation of left shoulder pain. He initially noted the discomfort a few weeks ago, had in the interim developed some left-sided abdominal pain, which has since improved, due to the persistence of the shoulder pain he presents to the ED for assessment. He denies any history of trauma. He notes a 25 pound weight loss over the past few months that he attributes to decreasing calorie intake to 1500 loli a day, and increasing calorie burn off to exercising 6 times per week. He reports over the past week he did increase his calorie intake back to 2000 loli a day. Workup in the emergency department included a normal CBC with differential and chemistry profile. KUB x-ray, and CT scan of the abdomen and pelvis, and CTA chest were significant for no PE, aortic aneurysm or dissection. CT abdomen and pelvis did note intraperitoneal free air and small to moderate amount of ascites concerning for viscus perforation. Fluid and gas-filled small bowel loops may represent enteritis or ileus in the appropriate clinical setting. Due to these abnormal findings, patient was [facility] for evaluation and treatment, and general surgery was consulted and saw the patient while in the ED as well. Pneumoperitoneum/perforated viscus/acute left shoulder pain- Patient's principal symptom was that of left shoulder pain. He had had some left-sided abdominal pain which came and went. His examination is relatively benign, although imaging looks very significant. Evaluated by surgery Started on clears LR at 125 mL/h Zofran 4 mg IV every 6 hours as needed Acetaminophen 1 g IV every 8 hours as needed for mild pain or fever Worsening neutropenia, Will hold Zosyn and Pantoprazole, Ascites- Noted a small to moderate on CT scan Likely secondary to perforated viscus Neutropenia Etiology is uncertain Could be from antibiotics Will hold Zosyn and Pantoprazole Will start flagyl (although there is a chance of neutropenia) Given relative bradycardia, will obtain Lyme and Anaplasama work up Disposititon: Hopefully d/ in the next 24 to 48 hrs Admission and Anticipated Discharge Date Admission Date: December 11, 2024 Subjective patient seen and examined, no new complaints, tolerating clears Review of Systems Review of Systems: All systems reviewed are negative, apart from the ones contained in the history. Physical Exam Physical Exam: The patient is awake, alert and oriented 3, well developed and well nourished, normocephalic and atraumatic, lying in bed and in no acute distress. HEENT--PERRL, EOMI, mucous membranes and oropharynx dry. Neck--supple. No JVD. No bruits. Thyroid normal, trachea midline, no adenopathy. Heart--normal S1 and S2. No murmurs, rubs or gallops. Lungs--clear bilaterally, no respiratory distress, no accessory muscle use. Abdomen--decreased bowel sounds, soft, nontender and nondistended. Extremities--no cyanosis or clubbing. No edema. There are good distal pulses b/l. Dermatologic--normal skin turgor, normal color, no abnormal lymph nodes, no rash. Neurologic--cranial nerves II through XII grossly intact. Rheumatologic--normal range of motion. Psychiatric--normal affect. Results & Data Results & Data Vital Signs (Past 12 Hours) Vital Signs Temp Pulse Pulse Resp BP BP Pulse Ox 12/12/24 08:18 46 L 12/12/24 06:57 97.7 F 41 L 14 111/66 100 12/11/24 23:41 97.9 F 18 105/66 98 12/11/24 23:33 46 L 18 112/68 99 12/11/24 23:00 97.9 F 65 18 105/66 98 O2 Del Method 12/12/24 08:18 12/12/24 06:57 Room Air 12/11/24 23:41 Room Air 12/11/24 23:33 Room Air 12/11/24 23:00 Room Air PG Care Time/CCT Total # of Minutes Spent Total Time Spent with Patient: Total time spent is greater than 50% in coordination of care (as documented) at patient's floor/unit and/or counseling patient: Coding Level of Care Code 00865 SUB INP/OBS CARE 2/35MIN Diagnoses Pneumoperitoneum K66.8 Perforated viscus R19.8 Ascites R18.8 Acute pain of left shoulder M25.512 Time Spent (min) 35
[2024-12-12] MEDS: metroNIDAZOLE 500 MG/100 ML BAG IV SCH (10:18)
[2024-12-12] MEDS: PANTOprazole 40 MG/10 ML SYR IV SCH (10:20)
--- NOTE | 2024-12-12 22:48 | Electrocardiogram Report ---
Test Reason : Blood Pressure : */* mmHG Vent. Rate : 50 BPM Atrial Rate : 50 BPM P-R Int : 166 ms QRS Dur : 94 ms QT Int : 434 ms P-R-T Axes : 48 2 21 degrees QTcB Int : 395 ms Sinus bradycardia Otherwise normal ECG No previous ECGs available Confirmed by Johnny Stephenson ([id number]) on 12/12/2024 10:47:45 PM Referred By: REFERRED SELF Confirmed By: Johnny Stephenson
[2024-12-13 07:02] VITALS: BP 112/69; PULSE 45; RESP 18; TEMP 97.5; O2SAT 98
[2024-12-13 07:32] LABS: Hematocrit (blood only) 38.1 % (42.0-52.0); Hemoglobin 13.0 g/dl (14.0-18.0); Mean Corpuscular Hemoglobin 31.3 pg (25.0-34.0); Mean Corpuscular Volume 91.8 fL (80.0-100.0); Platelet Count 182 K/uL (130-400); RDW Standard Deviation 42.6 fL (36.4-46.3); Red Blood Count 4.15 M/uL (4.70-6.10); White Blood Count 3.38 K/ul (4.8-10.8)
[2024-12-13 07:52] LABS: Alanine Aminotransferase 23.0 U/L (7-52); Albumin Globulin Ratio 1.8 (0.9-2); Alkaline Phosphatase 33.0 U/L (34-104); Anion Gap 4.0 (3-11); Bilirubin,Total 1.0 mg/dl (0.2-1.0); Blood Urea Nitrogen 13.0 mg/dl (6-23); Calcium 9.3 mg/dl (8.6-10.3); Carbon Dioxide 31.0 mmol/L (21-32); Chloride 106.0 mmol/L (98-107); Creatinine Clr Calc Pharmacy 99.0 ml/min; Globulin 2.2 gm/dl (2.5-4.0); Glucose 79.0 mg/dl (70-99(Fasting)); Magnesium 2.0 mg/dl (1.7-2.4); Potassium 4.3 mmol/L (3.5-5.1); Sodium 141.0 mmol/L (136-145); Total Protein 6.1 gm/dl (6.0-8.3)
[2024-12-13 07:53] LABS: Immature Granulocytes # (auto) 0.00 K/uL (0.01-0.20); Immature Granulocytes % (auto) 0.0 %; RBC Morphology Unremarkable
--- NOTE | 2024-12-13 09:55 | Surgery Progress Note ---
Date of Service December 13, 2024 Assessment & Plan (1) Pneumoperitoneum: Plan: He is tolerated is clear liquids, can advance as tolerated Unlikely he has a perforated viscus as he would have declared himself by this time No plans for any surgical exploration, surgery will sign off at this time, please call with any questions or concerns He should have follow-up with a PCP in the area to follow-up on his labs and to ensure that he is improved upon discharge Admission and Anticipated Discharge Date Admission Date: December 11, 2024 Subjective Patient seen and examined. Tolerated clear liquid diet. Denies any abdominal pain. No nausea or vomiting. Review of Systems Constitutional: no fever and no chills Eyes: no blind spots and no corrective lenses Respiratory: no cough and no dyspnea Cardiovascular: no chest pain and no dyspnea on exertion Gastrointestinal: no abdominal pain, no nausea and no vomiting Musculoskeletal: no back pain and no neck pain Integumentary: no acne, no lesions and no changing lesions Neurologic: no gait abnormality and no loss of sensation Psychiatric: no behavioral changes and no depression Physical Exam Constitutional: WD/WN, vitals as above Eyes: PERRL, conjunctivae normal, anicteric sclerae Respiratory: normal respiratory effort, lungs clear to auscultation Cardiovascular: RRR, no murmur, no edema Gastrointestinal (Abdomen): normal bowel sounds, soft, nontender, no hepatosp lenomegaly Skin: no rashes, warm and dry Psychiatric: A+Ox3, euthymic affect Results & Data Vital Signs (Past 12 Hours) Vital Signs Temp Pulse Resp BP Pulse Ox O2 Del Method 12/13/24 07:01 36.4 C L 45 L 18 112/69 98 Room Air 12/12/24 22:55 36.5 C 42 L 16 115/73 97 Room Air PG Care Time/CCT Total # of Minutes Spent Total Time Spent with Patient: Total time spent is greater than 50% in coordination of care (as documented) at patient's floor/unit and/or counseling patient: Coding Level of Care Code 41622 SUB INP/OBS CARE 05/13MIN Diagnoses Pneumoperitoneum K66.8
--- NOTE | 2024-12-13 10:40 | Discharge Summary ---
Date of Service December 13, 2024 Admission HPI Per Admitting Provider The patient is a 19-year-old male with no significant past medical history, who presents to the emergency department for evaluation of left shoulder pain. He initially noted the discomfort a few weeks ago, had in the interim developed some left-sided abdominal pain, which has since improved, due to the persistence of the shoulder pain he presents to the ED for assessment. He denies any history of trauma. He notes a 25 pound weight loss over the past few months that he attributes to decreasing calorie intake to 1500 loli a day, and increasing calorie burn off to exercising 6 times per week. He reports over the past week he did increase his calorie intake back to 2000 loli a day. Workup in the emergency department included a normal CBC with differential and chemistry profile. KUB x-ray, and CT scan of the abdomen and pelvis, and CTA chest were significant for no PE, aortic aneurysm or dissection. CT abdomen and pelvis did note intraperitoneal free air and small to moderate amount of ascites concerning for viscus perforation. Fluid and gas-filled small bowel loops may represent enteritis or ileus in the appropriate clinical setting. Admission Exam (Per Admitting) Constitutional WD/WN, vitals as above Eyes PERRL, conjunctivae normal, anicteric sclerae no conjunctival abnormality ENMT Ears: no hearing impairment and no external ear abnormality Mouth: no oropharynx abnormality Neck trachea midline Respiratory normal respiratory effort, lungs clear to auscultation normal respiratory effort; no respiratory distress and no labored breathing Cardiovascular RRR, no murmur, no edema Rate/Rhythm: regular rate and regular rhythm Vessels: dorsalis pedis pulses present and radial pulses present Gastrointestinal (Abdomen) normal bowel sounds, soft, nontender, no hepatosplenomegaly Skin no rashes, warm and dry no rashes Neurologic moves all extremities Psychiatric A+Ox3, euthymic affect Discharge Data Consultations 12/11/24 22:05 ED Decision to Admit Stat 12/11/24 22:10 Consult General Surgery Stat Hospital Course (1) Pneumoperitoneum: (2) Perforated viscus: (3) Ascites: (4) Acute pain of left shoulder: Plan The patient is a 19-year-old male with no significant past medical history, who presents to the emergency department for evaluation of left shoulder pain. He initially noted the discomfort a few weeks ago, had in the interim developed some left-sided abdominal pain, which has since improved, due to the persistence of the shoulder pain he presents to the ED for assessment. He denies any history of trauma. He notes a 25 pound weight loss over the past few months that he attributes to decreasing calorie intake to 1500 loli a day, and increasing calorie burn off to exercising 6 times per week. He reports over the past week he did increase his calorie intake back to 2000 loli a day. Workup in the emergency department included a normal CBC with differential and chemistry profile. KUB x-ray, and CT scan of the abdomen and pelvis, and CTA chest were significant for no PE, aortic aneurysm or dissection. CT abdomen and pelvis did note intraperitoneal free air and small to moderate amount of ascites concerning for viscus perforation. Fluid and gas-filled small bowel loops may represent enteritis or ileus in the appropriate clinical setting. Due to these abnormal findings, [facility] and general surgery was consulted and saw the patient while in the ED as well. Pneumoperitoneum/perforated viscus/acute left shoulder pain- Patient's principal symptom was that of left shoulder pain. He had had some left-sided abdominal pain which came and went. His examination is relatively benign, although imaging looks very significant. Evaluated by surgery Tolerated regular diet dicharge home continue PO Cipro 500mg and Flagyl 500mg BID for 5 days Ascites- Noted a small to moderate on CT scan Likely secondary to perforated viscus Neutropenia Now resolved Etiology is uncertain Could be from antibiotics Given relative bradycardia, Lyme and Anaplasama work up negative so far Disposititon: d/c home Coding Level of Care Code 33227 INP/OBS DISCH >30 MIN Diagnoses Pneumoperitoneum K66.8 Perforated viscus R19.8 Ascites R18.8 Acute pain of left shoulder M25.512 Time Spent (min) 35
== END 2024-12-13 10:04 | disposition home or self-care (01) | DRG 395 ==
LOC: ED 19:54 → INTOOBSV 22:53 → SUATTDRO 22:53 → 3N 22:53